=== PATIENT | male | born 1965 | race African-American/Black ===

== ENCOUNTER 2023-12-25 19:35 | Emergency (ER) | payer SELFPAY ==
[~2023-12-25] VITALS: Ht 188 cm; Wt 105.0 kg
[2023-12-25 19:41] VITALS: BP 158/79; PULSE 98; RESP 14; TEMP 97.9; O2SAT 100
== END 2023-12-25 20:26 | disposition home or self-care (01) ==
LOC: ER 19:35
DX: Z00.00 Encounter for general adult medical examination without abnormal findings (principal); Z86.718 Personal history of other venous thrombosis and embolism
CPT/HCPCS: 99283